=== PATIENT | male | born 1990 | race Caucasian/White ===

== ENCOUNTER 2021-12-30 01:47 | Inpatient (IN) | payer MEDICAID, OTHER ==
[2021-12-30] VITALS (7 sets, daily range): BP systolic 122–145; BP diastolic 51–100
[~2021-12-30] VITALS: Ht 185.4 cm; Wt 65.8 kg
--- NOTE | 2021-12-30 01:56 | NUR ---
To ER 4 ambulatory with report of "can't stop puking for two days." Reports took omeprazole two days ago but not helpful. Reports emesis looks like "bile." Reports last emesis @ 10 pm.
[2021-12-30] MEDS ORDERED: NS 1000ML 1,000 ML IV STA ×2 (02:10→04:48)
[2021-12-30] MEDS ORDERED: MORPHINE SULFATE IV STA ×2 (02:10→04:14)
[2021-12-30] MEDS ORDERED: ZOFRAN IV STA (02:10)
--- NOTE | 2021-12-30 02:10 | ER.PDOC ---
General Chief Complaint: Requesting Medical Care Stated Complaint: VOMITING Time seen by MD: 02:07 Source: patient Exam Limitations: no limitations History of Present Illness Initial Comments Drinks alcohol, + intermittent abd pain x 2 weeks. Severity/Quality: moderate Abdominal Pain Onset Location: Epigastric Associated Symptoms (vomiting): freq vomitng Associated Symptoms (diarrhea): mild Allergies: Uncoded Allergies: penicillin (Allergy, Unknown, 12/30/21) Vital Signs First Vital Signs Date Time Temp Pulse Resp B/P (MAP) Pulse Ox O2 Delivery O2 Flow Rate FiO2 12/30/21 01:56 98.3 119 22 125/93 (104) 97 Room Air* 0 21 Last Vital Signs Date Time Temp Pulse Resp B/P (MAP) Pulse Ox O2 Delivery O2 Flow Rate FiO2 12/30/21 01:56 98.3 119 22 12/30/21 01:56 97 12/30/21 01:56 125/93 (104) Room Air* 0 21 All Other Systems: Reviewed and Negative Physical Exam General Appearance: Moderate Distress HEENT: PERRL/EOMI, Normal ENT Inspection Neck: Non-Tender, Full Range of Motion Respiratory: chest non-tender, lungs clear Cardiovascular: Normal Peripheral Pulses, Regular Rate, Rhythm Gastrointestinal: Normal Bowel Sounds Back: Normal Inspection, No CVA Tenderness Extremities: Normal Range of Motion, Non-Tender Neurologic/Psychiatric: No Motor/Sensory Deficits, Alert Skin: Normal Color, Warm/Dry Lymphatic: No Adenopathy, Axilla Node Tender (R) Results/Orders Results/Orders Orders - WILMER NATARAJAN MD Cbc With Auto Diff (12/30/21 02:10) Comprehensive Metabolic Panel (12/30/21 02:10) Lipase (12/30/21 02:10) PT (12/30/21 02:10) Ct Abd/Pel With Iv Contrast (12/30/21 02:10) Partial Thromboplastin Time. (12/30/21 02:10) Urinalysis (12/30/21 02:10) Drug Scrn Med W Confirmation (12/30/21 02:10) Morphine Sulfate (Morphine Sulfate) (12/30/21 02:10) Ondansetron Hcl/Pf (Zofran) (12/30/21 02:10) 0.9 % Sodium Chloride (Ns 1000ml) (12/30/21 02:10) Alcohol(Ml) (12/30/21 02:10) 0.9 % Sodium Chloride (Ns 1000ml) (12/30/21 02:20) Ondansetron Hcl/Pf (Zofran) (12/30/21 02:20) Morphine Sulfate (Morphine Sulfate) (12/30/21 02:21) Lorazepam (Ativan) (12/30/21 03:17) Lorazepam (Ativan) (12/30/21 03:20) Lorazepam (Ativan) (12/30/21 03:44) Morphine Sulfate (Morphine Sulfate) (12/30/21 04:14) Morphine Sulfate (Morphine Sulfate) (12/30/21 04:26) 0.9 % Sodium Chloride (Ns 1000ml) (12/30/21 04:48) Admit Orders (12/30/21 04:49) Vital Signs Date Time Temp Pulse Resp B/P (MAP) Pulse Ox O2 Delivery O2 Flow Rate FiO2 12/30/21 01:56 98.3 119 22 12/30/21 01:56 98.3 119 22 97 12/30/21 01:56 98.3 119 22 125/93 (104) 97 Room Air* 0 21 Administered Medications Medications (Trade) Dose Ordered Sig/Poli Route PRN Reason Start Time Stop Time Status Last Admin Dose Admin Lorazepam (Ativan) 0.5 mg STAT STAT IV 12/30/21 03:17 12/30/21 03:18 DC 12/30/21 03:21 0.5 MG Lorazepam (Ativan) 0.5 mg STAT STAT IV 12/30/21 03:44 12/30/21 03:45 DC 12/30/21 03:48 0.5 MG Morphine Sulfate (Morphine Sulfate) 4 mg STAT STAT IV 12/30/21 02:10 12/30/21 02:17 DC 12/30/21 02:41 4 MG Morphine Sulfate (Morphine Sulfate) 4 mg STAT STAT IV 12/30/21 04:14 12/30/21 04:15 DC 12/30/21 04:27 4 MG Ondansetron HCl (Zofran) 4 mg OT STAT IV 12/30/21 02:10 12/30/21 02:17 DC 12/30/21 02:41 4 MG Sodium Chloride 1,000 ml @ 150 mls/hr Q6H40M STAT IV 12/30/21 04:48 12/30/21 11:27 12/30/21 05:10 150 MLS/HR Sodium Chloride 1,000 ml @ 1,200 mls/hr Q50M STAT IV 12/30/21 02:10 12/30/21 02:59 DC 12/30/21 02:42 1,200 MLS/HR Laboratory Tests Test 12/30/21 02:10 12/30/21 02:15 12/30/21 02:45 Urine Collection Type RANDOM Urine Color STRAW Urine Appearance CLEAR Urine Bilirubin NEGATIVE (NEGATIVE) Urine Ketones NEGATIVE (NEGATIVE) Urine Specific [place] <=1.005 (1.005-1.030) Urine pH 6.0 (4.5-8.0) Urine Protein NEGATIVE (NEGATIVE) Urine Urobilinogen 0.2 E.U./dL (0.2) Urine Nitrate NEGATIVE (NEGATIVE) Urine Leukocyte Esterase NEGATIVE (NEGATIVE) Urine Glucose (Auto)(UA) NEGATIVE (NEGATIVE) Urine Blood NEGATIVE (NEGATIVE) Urine Opiates Screen NEGATIVE (c/o300ng/mL) Urine Methadone Screen NEGATIVE (c/o300ng/mL) Urine Barbiturates Screen NEGATIVE (c/o200ng/mL) Urine Phencyclidine Screen NEGATIVE (c/o 25ng/mL) Ur Amphetamine/Methamphetamine NEGATIVE ([id number]/mL) Urine MDMA Screen (Ecstasy) NEGATIVE (c/o300ng/mL) Urine Benzodiazepines Screen NEGATIVE (c/o200ng/mL) Urine Cocaine Metabolite Screen NEGATIVE (c/o300ng/mL) Ur Tetrahydrocannabinol (THC) Scrn NEGATIVE (c/o 50ng/mL) White Blood Count 3.5 10^3/uL (4.5-11.0) L Red Blood Count 4.88 10^6/uL (4.50-5.90) Hemoglobin 16.1 g/dL (13.9-16.3) Hematocrit 46.6 % (37.0-53.0) Mean Corpuscular Volume 95.5 fL (78-100) Mean Corpuscular Hemoglobin 33.0 pg (26-34) Mean Corpuscular Hemoglobin Concent 34.5 g/dL (33-36.5) Red Cell Distribution Width 14.7 % (11.5-14.5) H Platelet Count 147 10^3/uL (150-400) L Mean Platelet Volume 7.7 fL (7.8-11.0) L Neutrophils (%) (Auto) 43.5 % (41.0-85.0) Lymphocytes (%) (Auto) 41.4 % (24.0-44.0) Monocytes (%) (Auto) 12.2 % (5.0-12.0) H Neutrophils # (Auto) 1.5 10^3/uL (1.8-7.7) L Lymphocytes # (Auto) 1.43 10^3/uL1 (1.0-4.8) Monocytes # (Auto) 0.4 10^3/uL (0.3-0.8) Absolute Immature Granulocyte (auto 0 10^3 u/L (0-2) Absolute Eosinophils (auto) 0.0 10^3/uL (0.0-0.2) Immature Granulocytes % 0.00 % (0.00-0.50) Eosinophils % 1.2 % (0.0-5.0) Basophils % 1.7 % (0.0-0.2) H Basophils # 0.1 10^3/uL (0.0-0.1) Prothrombin Time 9.8 SEC (9.1-11.5) Prothrombin Time INR (Non-Therap) 1.0 Activated Partial Thromboplast Time 24.3 SEC (22.5-33.1) Sodium Level 141 mmol/L (132-145) Potassium Level 4.4 mmol/L (3.6-5.2) Chloride Level 103.0 mmol/L (96-109) Carbon Dioxide Level 22.5 mmol/L (20.0-32) Anion Gap 19.9 Blood Urea Nitrogen 4 mg/dL (7-18) L Creatinine 0.71 mg/dL (0.59-1.40) Estimated GFR () 155.6 (>/=60) Est GFR (CKD-EPI)(Non-Afr Gabonese) 128.6 (>/=60) BUN/Creatinine Ratio 5.0 Glucose Level 92 mg/dL (70-110) Calcium Level 8.8 mg/dL (8.4-10.5) Total Bilirubin 0.8 mg/dL (0.2-1.0) Aspartate Amino Transferase (AST) 180 U/L (0-35) H Alanine Aminotransferase (ALT) 154 U/L (12-78) H Alkaline Phosphatase 71 U/L (50-136) Total Protein 7.2 g/dL (6.4-8.2) Albumin 3.8 g/dL (3.4-5.0) Globulin 3.4 Albumin/Globulin Ratio 1.117 Lipase 445 U/L (114-286) H Serum Alcohol 413 mg/dL (0-50) H Progress Progress called DR. Lind @ 04:18 to admit patient, no answer, [facility]. Call #2 Dr. Diogo [email or web address] @04:32 ER DEPART Departure Time of Disposition: 06:08 Disposition: 09 ADMITTED INPATIENT Impression: Primary Impression: Pancreatitis Additional Impression: Alcohol abuse Condition: Stable Referrals: PCP,UNKNOWN (PCP) PRIMARY CARE PROVIDER Duration or Time Spent with Pa: 1 hr Problem Qualifiers WILMER NATARAJAN MD December 30, 2021 02:10
[2021-12-30] MEDS ORDERED: ZOFRAN ONE (02:20)
[2021-12-30] MEDS ORDERED: NS 1000ML 1,000 ML ONE (02:20)
[2021-12-30] MEDS ORDERED: MORPHINE SULFATE ONE ×3 (02:21→07:37)
[2021-12-30 02:24] LABS: BILIRUBIN,URINE NEGATIVE (NEGATIVE); UROBILINOGEN,URINE 0.2 E.U./dL (0.2)
[2021-12-30 02:51] LABS: BASOPHIL # 0.1 10^3/uL (0.0-0.1); BASOPHIL % 1.7 % (0.0-0.2); EOSINOPHIL % 1.2 % (0.0-5.0); LYMPHOCYTES # 1.43 10^3/uL1 (1.0-4.8); LYMPHOCYTES % 41.4 % (24.0-44.0); MONOCYTES # 0.4 10^3/uL (0.3-0.8); MONOCYTES % 12.2 % (5.0-12.0); NEUTROPHIL # 1.5 10^3/uL (1.8-7.7); NEUTROPHILS % 43.5 % (41.0-85.0); PLATELET COUNT 147 10^3/uL (150-400); RED CELL DISTRIBUTION WIDTH 14.7 % (11.5-14.5)
[2021-12-30 03:10] LABS: CARBON DIOXIDE 22.5 mmol/L (20.0-32)
--- NOTE | 2021-12-30 03:15 | NUR ---
CRITICAL LAB ALCOHOL LEVEL 413. REPORTED TO DR. NATARAJAN.
[2021-12-30] MEDS ORDERED: ATIVAN IV STA ×2 (03:17→03:44)
[2021-12-30] MEDS ORDERED: ATIVAN ONE (03:20)
--- NOTE | 2021-12-30 03:55 | DIREP ---
PROCEDURE:CT ABDOMEN/PELVIS W/ CONTRAST COMPARISON:None. INDICATIONS:abd pain TECHNIQUE:Axial images were created through the abdomen and pelvis with non-ionic intravenous contrast material. No oral contrast was administered. Sagittal and coronal reconstructions were performed from source images. FINDINGS: LUNG BASES:No suspicious airspace consolidation or pleural effusion. LIVER:Significant hepatic steatosis. No suspicious focal hepatic lesion. BILIARY:The gallbladder is nondistended. No radiopaque calculi. No significant intrahepatic or extrahepatic biliary ductal dilatation. PANCREAS:No suspicious pancreatic abnormality. SPLEEN:The spleen is not significantly enlarged. No focal splenic lesion identified. ADRENALS:The adrenal glands are unremarkable. URINARY TRACT:No hydronephrosis or suspicious renal lesion. AORTA/VASCULAR:No aneurysmal dilatation. RETROPERITONEUM:No suspicious retroperitoneal lymphadenopathy. BOWEL/MESENTERY:Mild wall thickening of the distal esophagus may be secondary to reflux esophagitis. No evidence for small bowel obstruction. No gross colonic abnormality. Nonvisualization of the appendix without secondary signs to suggest acute appendicitis. No free air. ABDOMINAL WALL:No significant hernia. PELVIC ORGANS:Urinary bladder is mildly distended. The prostate is not enlarged. No free fluid. BONES:No acute abnormality. CONCLUSION: 1. No acute intra-abdominal abnormality. No gross colonic abnormality. Nonvisualization of the appendix without secondary signs to suggest acute appendicitis. Significant hepatic steatosis. Mild wall thickening of the distal esophagus may be secondary to reflux esophagitis. 2. Additional findings as discussed above. Dictated by: eDnys Pedroza M.D. On 12/30/2021 at 03:47 AM
--- NOTE | 2021-12-30 04:21 | NUR ---
Pt frequently ambulatory to and from the restroom with steady gait.
[2021-12-30] MEDS ORDERED: OMEP20CA19 PO (06:10)
[2021-12-30] MEDS ORDERED: PHENERGAN IV PRN (06:30)
[2021-12-30] MEDS ORDERED: ATIVAN IV PRN (06:30)
[2021-12-30] MEDS: MORPHINE SULFATE IV PRN ×3 (07:41→19:29)
[2021-12-30] MEDS: ZOFRAN IV PRN ×2 (07:41→19:30)
[2021-12-30] MEDS: NICOTINE 7MG PATCH TD SCH (08:13)
[2021-12-30] MEDS ORDERED: THIAMINE HCL IV STA (08:47)
[2021-12-30] MEDS: LOVENOX SQ SCH ×2 (09:00→09:36)
[2021-12-30] MEDS ORDERED: NS IV ONE (09:00)
[2021-12-30] MEDS ORDERED: INFUVITE ADULT IV ONE (09:00)
[2021-12-30] MEDS: D5LR 1000ML 1,000 ML IV SCH ×3 (09:00→22:20)
[2021-12-30] MEDS ORDERED: LIBRIUM PO PRN (09:00)
[2021-12-30] MEDS ORDERED: TORADOL IV PRN (09:00)
[2021-12-30] MEDS ORDERED: THIAMINE HCL IV ONE (09:00)
[2021-12-30] MEDS: THIAMINE HCL PO SCH (09:36)
[2021-12-30] MEDS ORDERED: LIBRIUM ONE (10:24)
[2021-12-30] MEDS: LIBRIUM PO SCH ×2 (10:26→17:30)
[2021-12-30] MEDS: NS 1000ML 1,000 ML IV SCH ×2 (11:00→17:40)
[2021-12-30] MEDS: ATIVAN IV PRN ×3 (11:30→22:05)
--- NOTE | 2021-12-30 12:23 | PCM.HP ---
HISTORY & PHYSICAL HISTORY & PHYSICAL DATE OF ADMISSION: December 30, 2021 CHIEF COMPLAINT: Nausea vomiting for 1 week HISTORY OF PRESENT ILLNESS: 31-year-old male with previous history of no known medical problems presented to the ER with a complaint of vomiting clear liquid On and off for 1 week not able to tolerate solid food denies any hematemesis denies any diarrhea melena or hematochezia no fever chills or rigors Client was able to tolerate water intermittently and abdominal pain that was constant in nature no aggravating or relieving factor except pain medication No skin rash no headache no blurry vision no shortness of breath cough or wheezing no dysuria or hematuria or increased frequency of urination ALLERGIES: Allergy to penicillin had severe rash CURRENT MEDICATIONS: [id number] omeprazole as needed for abdominal pain PAST MEDICAL HISTORY: Umbilical hernia surgery, history of hepatitis C infection SOCIAL HISTORY: Vape nicotine, chronic alcohol intake FAMILY HISTORY: Reviewed and noncontributory REVIEW OF SYSTEMS: Increase appetite no nausea no headache no blurry vision no shortness of breath or cough no wheezing have abdominal pain mild in nature in the epigastrium no radiation denies any diarrhea melena or hematochezia no urinary symptoms no musculoskeletal symptoms, has skin rash for several years All systems reviewed and negative except mentioned above VITAL SIGNS: Vital Signs Date Time Temp Pulse Resp B/P (MAP) Pulse Ox O2 Delivery O2 Flow Rate FiO2 12/30/21 11:12 91 16 94 Nasal Cannula* 2 12/30/21 11:00 89 19 98 Nasal Cannula* 2 12/30/21 10:30 95 19 100 Nasal Cannula* 2 12/30/21 10:00 100 38 96 Nasal Cannula* 2 12/30/21 09:30 89 13 99 Nasal Cannula* 2 12/30/21 09:14 Nasal Cannula 12/30/21 09:00 92 41 100 Nasal Cannula* 2 12/30/21 09:00 92 20 100 Nasal Cannula* 2 12/30/21 08:30 95 21 100 Room Air* 0 12/30/21 08:14 Nasal Cannula 2.00 12/30/21 08:00 91 20 100 Room Air* 0 12/30/21 08:00 91 20 100 Room Air* 0 12/30/21 07:30 101 21 136/98 (111) 98 Room Air* 0 12/30/21 07:30 101 21 136/98 (111) 98 Room Air* 0 21 12/30/21 07:22 98 36 130/100 (110) Room Air* 0 21 12/30/21 07:22 98.0 98 36 130/100 (110) 95 Room Air* 0 21 12/30/21 01:56 98.3 119 22 12/30/21 01:56 98.3 119 22 97 12/30/21 01:56 98.3 119 22 125/93 (104) 97 Room Air* 0 21 PHYSICAL EXAMINATION: HEENT anicteric sclera pupil react light mucous membrane is moist neck supple no JVD no carotid bruit Lungs: Air entry symmetrical no Rales or rhonchi heard Heart: S1-S2 heard no murmur gallop appreciated Abdomen: Flaky rash on the abdomen noted, Soft and nontender no organomegaly or masses felt no guarding or rigidity present bowel sounds active Extremities skin rash noted again moves all 4 limbs, no edema or bruises noted 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 have trembling and no focal deficit noted Psych anxious and normal insight of his condition LABORATORY DATA: Laboratory Tests 12/30/21 02:10: Urine Collection Type RANDOM, Urine Color STRAW, Urine Appearance CLEAR, Urine Bilirubin NEGATIVE, Urine Ketones NEGATIVE, Urine Specific [place] <=1.005, Urine pH 6.0, Urine Protein NEGATIVE, Urine Urobilinogen 0.2, Urine Nitrate NEGATIVE, Urine Leukocyte Esterase NEGATIVE, Urine Glucose (Auto)(UA) NEGATIVE, Urine Blood NEGATIVE 12/30/21 02:15: Urine Opiates Screen NEGATIVE, Urine Methadone Screen NEGATIVE, Urine Barbiturates Screen NEGATIVE, Urine Phencyclidine Screen NEGATIVE, Ur Amphetamine/Methamphetamine Scrn NEGATIVE, Urine MDMA Screen (Ecstasy) NEGATIVE, Urine Benzodiazepines Screen NEGATIVE, Urine Cocaine Metabolite Screen NEGATIVE, Ur Tetrahydrocannabinol (THC) Scrn NEGATIVE 12/30/21 02:45: White Blood Count 3.5L, Red Blood Count 4.88, Hemoglobin 16.1, Hematocrit 46.6, Mean Corpuscular Volume 95.5, Mean Corpuscular Hemoglobin 33.0, Mean Corpuscular Hemoglobin Concent 34.5, Red Cell Distribution Width 14.7H, Platelet Count 147L, Mean Platelet Volume 7.7L, Neutrophils (%) (Auto) 43.5, Lymphocytes (%) (Auto) 41.4, Monocytes (%) (Auto) 12.2H, Neutrophils # (Auto) 1.5L, Lymphocytes # (Auto) 1.43, Monocytes # (Auto) 0.4, Absolute Immature Granulocyte (auto 0, Absolute Eosinophils (auto) 0.0, Immature Granulocytes % 0.00, Eosinophils % 1.2, Basophils % 1.7H, Basophils # 0.1, Prothrombin Time 9.8, Prothrombin Time INR (Non-Therap) 1.0, Activated Partial Thromboplast Time 24.3, Sodium Level 141, Potassium Level 4.4, Chloride Level 103.0, Carbon Dioxide Level 22.5, Anion Gap 19.9, Blood Urea Nitrogen 4L, Creatinine 0.71, Estimated GFR ( [place]) 155.6, Est GFR (CKD-EPI)(Non-Afr Cam[place]onian) 128.6, BUN/Creatinine Ratio 5.0, Glucose Level 92, Calcium Level 8.8, Total Bilirubin 0.8, Aspartate Amino Transf (AST/SGOT) 180H, Alanine Aminotransferase (ALT/SGPT) 154H, Alkaline Phosphatase 71, Total Protein 7.2, Albumin 3.8, Globulin 3.4, Albumin/Globulin Ratio 1.117, Lipase 445H, Serum Alcohol 413H IMAGING: SUMMARY: 31-year-old male presented with nausea and vomiting with alcoholic intoxication and now showing early withdrawal sign alcoholic intoxication ASSESSMENT/PLAN: Alcohol abuse Alcoholic withdrawal with anxiety History of hepatitis C infection Fatty liver on imaging Psoriasis Plan: IV fluid, thiamine,,Clear liquid diet, Librium and Ativan for withdrawal symptoms and DT, hepatitis panel, advised on abstinence from alcohol and tobacco use BRIAN SANTANA MD December 30, 2021 12:23
[2021-12-30] MEDS: LACTATED RINGERS 1,000 ML IV SCH ×2 (20:58→21:00)
[2021-12-31] MEDS: NS 1000ML 1,000 ML IV SCH ×2 (00:20→07:00)
[2021-12-31] MEDS: LIBRIUM PO SCH ×5 (00:23→23:08)
[2021-12-31 00:52] VITALS: BP 157/95
[2021-12-31] MEDS: LACTATED RINGERS 1,000 ML IV SCH ×8 (01:00→21:04)
[2021-12-31] MEDS: ZOFRAN IV PRN (02:18)
[2021-12-31] MEDS: MORPHINE SULFATE IV PRN ×4 (02:19→21:04)
[2021-12-31] MEDS: ATIVAN IV PRN ×5 (04:42→23:07)
[2021-12-31 04:54] LABS: BASOPHIL # 0.1 10^3/uL (0.0-0.1); BASOPHIL % 2.3 % (0.0-0.2); EOSINOPHIL % 1.5 % (0.0-5.0); LYMPHOCYTES # 0.69 10^3/uL1 (1.0-4.8); LYMPHOCYTES % 26.6 % (24.0-44.0); MEAN CORP HGB 33.8 pg (26-34); MONOCYTES # 0.2 10^3/uL (0.3-0.8); MONOCYTES % 7.7 % (5.0-12.0); NEUTROPHIL # 1.6 10^3/uL (1.8-7.7); NEUTROPHILS % 61.9 % (41.0-85.0); PLATELET COUNT 80 10^3/uL (150-400); RED CELL DISTRIBUTION WIDTH 14.1 % (11.5-14.5)
[2021-12-31] MEDS: D5LR 1000ML 1,000 ML IV SCH (05:00)
[2021-12-31 05:18] LABS: CARBON DIOXIDE 23.9 mmol/L (20.0-32)
[2021-12-31 05:44] VITALS: BP 145/92
[2021-12-31 07:00] VITALS: BP 150/98
[2021-12-31] MEDS: LOVENOX SQ SCH (08:30)
[2021-12-31] MEDS ORDERED: PROTONIX IV IV SCH (09:00)
[2021-12-31] MEDS: NICOTINE 7MG PATCH TD SCH (09:26)
[2021-12-31] MEDS: THIAMINE HCL PO SCH (09:26)
--- NOTE | 2021-12-31 10:32 | NUR ---
STATUS DR VERDE IN ROOM TO SEE PT, ORDER RECEIVED TO CHANGE ATIVAN IV 1MG Q4 PRN TO ATIVAN IV 1MG Q4 SCHEDULED AND ATIVAN 1MG Q2 HR PRN FOR WITHDRAWALS. PT EDUCATED ON CHANGE OF MEDICATIONS, VERBALIZED UNDERSTANDING. WILL CONT WITH PLAN OF CARE.
--- NOTE | 2021-12-31 10:35 | NUR ---
DISCHARGE PLAN CM AT BEDSIDE TO VISIT WITH PATIENT REGARDING D/C PLAN. PATIENT LIVES AT HOME AT [facility] WITH HIS SIBLINGS. HE IS VERY IND OF ADLS AND DOES NOT USE OR REQUIRE DME FOR ADLS. PATIENT WAS DRIVING THROUGH [place] [facility] STOPPED AT THE ER DUE TO HIS ABDOMINAL PAIN. CM ASKED PATIENT HE WOULD LIKE INFORMATION ON ALCOHOL ABUSE RESOURCES. PATIENT GOT SHORT WITH CM AND SAID "THAT'S WHY I AM HERE, I JUST TALKED TO SOMEONE ABOUT THAT." HE ALSO TOLD CM THAT HE DID NOT WANT TO TALK ABOUT IT AGAIN AND HE HAS NOT HAD ANY SLEEP AND HE KEEPS GETTING WOKE UP AND BOTHERED. CM LEFT A CONTACT NUMBER FOR [facility] [phone] LOCATED IN [facility] WITH RN TO PROVIDE TO PATIENT. DISCHARGE PLAN IS FOR PATIENT TO D/C BACK HOME TO ROUTINE CARE AND FOLLOW UP WITH SEEKING REHAB ON AN OUTPATIENT BASIS. NO FURTHER NEEDS NOTED AT THIS TIME.
[2021-12-31] MEDS ORDERED: CATAPRES PO PRN (11:00)
--- NOTE | 2021-12-31 11:03 | PRM.PN ---
Subjective Subjective Date: December 31, 2021 Time: 09:00 Subjective Patient still anxious, restless, still complaining of abdominal pain. Review of Systems Constitutional: No: Fever, Chills Gastrointestinal: Nausea, Abdominal Pain Neurological: Other (Anxious, restless) Other Review of other 14 systems negative except was mentioned in history of present illness/ Allergies: Uncoded Allergies: penicillin (Allergy, Unknown, 12/30/21) Scheduled Omeprazole (Omeprazole), 20 MG PO DAILY24, (Reported) Objective Vitals and I/O Vital Sign - Last 24 Hours 12/30/21 12/30/21 12/30/21 12/30/21 11:00 11:00 11:00 11:00 Pulse 89 89 89 89 Resp 19 19 19 19 Pulse Ox 98 98 98 98 O2 Delivery Nasal Cannula* Nasal Cannula* Nasal Cannula* Nasal Cannula* O2 Flow Rate 2 2 2 2 FiO2 28 12/30/21 12/30/21 12/30/21 12/30/21 11:12 11:15 11:30 11:37 Pulse 91 103 89 102 Resp 16 20 15 28 B/P (MAP) 122/51 (74) Pulse Ox 94 96 87 96 O2 Delivery Nasal Cannula* Nasal Cannula* Nasal Cannula* Nasal Cannula* O2 Flow Rate 2 2 2 2 FiO2 28 12/30/21 12/30/21 12/30/21 12/30/21 11:37 11:45 12:00 12:00 Pulse 102 96 89 89 Resp 28 16 16 B/P (MAP) 122/51 (74) 128/78 (95) 128/78 (95) Pulse Ox 96 88 97 97 O2 Delivery Nasal Cannula* Nasal Cannula* Nasal Cannula* Nasal Cannula* O2 Flow Rate 2 2 2 2 FiO2 28 12/30/21 12/30/21 12/30/21 12/30/21 12:15 12:22 12:30 12:45 Pulse 101 102 93 Resp 16 14 14 Pulse Ox 99 98 96 O2 Delivery Nasal Cannula* Nasal Cannula* Nasal Cannula* Nasal Cannula* O2 Flow Rate 2 2 2 2 FiO2 28 12/30/21 12/30/21 12/30/21 12/30/21 12:45 13:45 14:00 14:00 Pulse 93 93 97 97 Resp 14 15 15 15 Pulse Ox 96 93 92 92 O2 Delivery Nasal Cannula* Nasal Cannula* Nasal Cannula* Nasal Cannula* O2 Flow Rate 2 2 2 2 FiO2 28 28 28 28 12/30/21 12/30/21 12/30/21 12/30/21 14:58 15:00 16:00 17:35 Pulse 99 86 87 Resp 20 17 32 B/P (MAP) 139/91 (107) Pulse Ox 99 99 95 O2 Delivery Room Air* Room Air* Room Air* Room Air* O2 Flow Rate 0 0 0 0 FiO2 21 12/30/21 12/30/21 12/30/21 12/31/21 17:59 19:00 19:50 00:52 Temp 98.3 98.5 Pulse 90 113 95 Resp 14 62 22 B/P (MAP) 145/90 (108) 157/95 (115) Pulse Ox 98 96 97 O2 Delivery Room Air* Room Air* Nasal Cannula Room Air* O2 Flow Rate 0 0 0 FiO2 21 12/31/21 12/31/21 12/31/21 12/31/21 05:44 07:00 08:32 08:37 Temp 98.5 98.2 Pulse 91 85 91 Resp 19 18 19 B/P (MAP) 145/92 (109) 150/98 (115) Pulse Ox 96 96 97 O2 Delivery Room Air* Room Air* Room Air Room Air* O2 Flow Rate 0 0 0 FiO2 Intake and Output 12/31/21 07:00 Intake Total 4370 ml Output Total 4600 ml Balance -230 ml General: Alert, Oriented X3, moderate distress, Other (Anxious and restless) HEENT: Atraumatic, Mucous membr. moist/pink Neck: Supple, No JVD Lungs: Clear to auscultation, Normal air movement Heart: Regular rate, Normal S1, Normal S2 Abdomen: Soft, Other (Tender) Extremities: No clubbing, No cyanosis Skin: No significant lesion Neuro: Normal speech, Normal tone, Other (Anxious, restless) Psych/Mental Status: Mental status NL, Other (Anxious, restless) All Results(Lab/Rad) Laboratory Tests Test 12/31/21 04:30 White Blood Count 2.6 10^3/uL Red Blood Count 4.02 10^6/uL Hemoglobin 13.6 g/dL Hematocrit 38.1 % Mean Corpuscular Volume 94.8 fL Mean Corpuscular Hemoglobin 33.8 pg Mean Corpuscular Hemoglobin Concent 35.7 g/dL Red Cell Distribution Width 14.1 % Platelet Count 80 10^3/uL Mean Platelet Volume 9.0 fL Neutrophils (%) (Auto) 61.9 % Lymphocytes (%) (Auto) 26.6 % Monocytes (%) (Auto) 7.7 % Neutrophils # (Auto) 1.6 10^3/uL Lymphocytes # (Auto) 0.69 10^3/uL1 Monocytes # (Auto) 0.2 10^3/uL Absolute Immature Granulocyte (auto 0 10^3 u/L Absolute Eosinophils (auto) 0.0 10^3/uL Immature Granulocytes % 0.00 % Eosinophils % 1.5 % Basophils % 2.3 % Basophils # 0.1 10^3/uL Sodium Level 135 mmol/L Potassium Level 3.8 mmol/L Chloride Level 97.0 mmol/L Carbon Dioxide Level 23.9 mmol/L Anion Gap 17.9 Blood Urea Nitrogen 6 mg/dL Creatinine 0.78 mg/dL Estimated GFR () 139.6 Est GFR (CKD-EPI)(Non-Afr [place]) 115.4 BUN/Creatinine Ratio 7.0 Glucose Level 62 mg/dL Calcium Level 8.7 mg/dL Phosphorus Level 3.8 mg/dL Magnesium Level 1.5 mg/dL Total Bilirubin 1.5 mg/dL Aspartate Amino Transf (AST/SGOT) 97 U/L Alanine Aminotransferase (ALT/SGPT) 103 U/L Alkaline Phosphatase 70 U/L Total Protein 6.6 g/dL Albumin 3.4 g/dL Globulin 3.2 Albumin/Globulin Ratio 1.062 Lipase 156 U/L Current Medications Medications (Trade) Dose Ordered Sig/Poli Route PRN Reason Start Time Stop Time Status Last Admin Dose Admin Morphine Sulfate (Morphine Sulfate) 4 mg STAT STAT IV 12/30/21 02:10 12/30/21 02:17 DC 12/30/21 02:41 Ondansetron HCl (Zofran) 4 mg OT STAT IV 12/30/21 02:10 12/30/21 02:17 DC 12/30/21 02:41 Sodium Chloride 1,000 ml @ 1,200 mls/hr Q50M STAT IV 12/30/21 02:10 12/30/21 02:59 DC 12/30/21 02:42 Sodium Chloride 1,000 ml @ ud STK-MED ONCE .ROUTE 12/30/21 02:20 12/30/21 02:20 DC Ondansetron HCl (Zofran) 4 mg STK-MED ONCE .ROUTE 12/30/21 02:20 12/30/21 02:20 DC Morphine Sulfate (Morphine Sulfate) 2 mg STK-MED ONCE .ROUTE 12/30/21 02:21 12/30/21 02:21 DC Lorazepam (Ativan) 0.5 mg STAT STAT IV 12/30/21 03:17 12/30/21 03:18 DC 12/30/21 03:21 Lorazepam (Ativan) 2 mg STK-MED ONCE .ROUTE 12/30/21 03:20 12/30/21 03:20 DC Lorazepam (Ativan) 0.5 mg STAT STAT IV 12/30/21 03:44 12/30/21 03:45 DC 12/30/21 03:48 Morphine Sulfate (Morphine Sulfate) 4 mg STAT STAT IV 12/30/21 04:14 12/30/21 04:15 DC 12/30/21 04:27 Morphine Sulfate (Morphine Sulfate) 2 mg STK-MED ONCE .ROUTE 12/30/21 04:26 12/30/21 04:26 DC Sodium Chloride 1,000 ml @ 150 mls/hr Q6H40M STAT IV 12/30/21 04:48 12/30/21 08:52 DC 12/30/21 05:10 Sodium Chloride 1,000 ml @ 150 mls/hr Q6H40M IV 12/30/21 11:00 12/31/21 07:11 DC Ondansetron HCl (Zofran) 4 mg Q6HR PRN IV NAUSEA / VOMITING 12/30/21 06:30 01/29/22 06:29 12/31/21 02:18 Promethazine HCl (Phenergan) 12.5 mg Q6H PRN IV NAUSEA / VOMITING 12/30/21 06:30 01/29/22 06:29 Morphine Sulfate (Morphine Sulfate) 4 mg Q4 PRN IV PAIN 7 - 10 12/30/21 06:30 01/29/22 06:29 12/31/21 07:18 Ketorolac Tromethamine (Toradol) 15 mg Q6H PRN IV PAIN 4 - 6 12/30/21 09:00 12/30/21 08:52 DC Enoxaparin Sodium (Lovenox) 40 mg Q24HRS SQ 12/30/21 09:00 01/29/22 08:59 Lorazepam (Ativan) 2 mg Q2 PRN IV WITHDRAWAL SYMPTOMS 12/30/21 06:30 12/30/21 08:57 DC Morphine Sulfate (Morphine Sulfate) 4 mg STK-MED ONCE .ROUTE 12/30/21 07:37 12/30/21 07:38 DC Nicotine (Nicotine 7mg Patch) 1 each DAILY TD 12/30/21 09:00 01/03/22 09:00 12/31/21 09:26 Thiamine HCl (Thiamine HCl) 100 mg STAT STAT IV 12/30/21 08:47 12/30/21 08:53 DC Thiamine HCl (Thiamine HCl) 100 mg DAILY PO 12/30/21 09:00 01/29/22 08:59 12/31/21 09:26 Dextrose/Lactated Ringer's 1,000 ml @ 150 mls/hr Q6H40M IV 12/30/21 09:00 12/31/21 07:11 DC Thiamine HCl 1000 mg/Multivit Infusn,Adult 4,Vit K 10 ml/ Sodium Chloride 1,020 ml @ 100 mls/hr OT ONCE IV 12/30/21 09:00 12/30/21 19:12 DC 12/30/21 10:27 Chlordiazepoxide (Librium) 25 mg Q6HR PRN PO ALCOHOL WITHDRAWAL 12/30/21 09:00 12/30/21 10:22 DC Lorazepam (Ativan) 1 mg Q4HR PRN IV ALCOHOL WITHDRAWAL 12/30/21 09:00 01/29/22 08:59 12/31/21 09:26 Pantoprazole Sodium (Protonix Iv) 40 mg DAILY IV 12/31/21 09:00 01/30/22 08:59 12/31/21 09:26 Chlordiazepoxide (Librium) 25 mg Q6HR PO 12/30/21 12:00 01/29/22 08:59 12/31/21 06:12 Chlordiazepoxide (Librium) 25 mg STK-MED ONCE .ROUTE 12/30/21 10:24 12/30/21 10:25 DC Clonidine (Catapres) 0.1 mg Q8H PRN PO hypertension 12/31/21 11:00 01/30/22 10:59 UNV LAB RESULTS Laboratory Tests Test 12/30/21 02:10 12/30/21 02:15 12/30/21 02:45 12/31/21 04:30 Urine Collection Type RANDOM Urine Color STRAW Urine Appearance CLEAR Urine Bilirubin NEGATIVE (NEGATIVE) Urine Ketones NEGATIVE (NEGATIVE) Urine Specific [place] <=1.005 (1.005-1.030) Urine pH 6.0 (4.5-8.0) Urine Protein NEGATIVE (NEGATIVE) Urine Urobilinogen 0.2 E.U./dL (0.2) Urine Nitrate NEGATIVE (NEGATIVE) Urine Leukocyte Esterase NEGATIVE (NEGATIVE) Urine Glucose (Auto)(UA) NEGATIVE (NEGATIVE) Urine Blood NEGATIVE (NEGATIVE) Urine Opiates Screen NEGATIVE (c/o300ng/mL) Urine Methadone Screen NEGATIVE (c/o300ng/mL) Urine Barbiturates Screen NEGATIVE (c/o200ng/mL) Urine Phencyclidine Screen NEGATIVE (c/o 25ng/mL) Ur Amphetamine/Methamphetamine NEGATIVE ([id number]/mL) Urine MDMA Screen (Ecstasy) NEGATIVE (c/o300ng/mL) Urine Benzodiazepines Screen NEGATIVE (c/o200ng/mL) Urine Cocaine Metabolite Screen NEGATIVE (c/o300ng/mL) Ur Tetrahydrocannabinol (THC) Scrn NEGATIVE (c/o 50ng/mL) White Blood Count 3.5 10^3/uL (4.5-11.0) 2.6 10^3/uL (4.5-11.0) Red Blood Count 4.88 10^6/uL (4.50-5.90) 4.02 10^6/uL (4.50-5.90) Hemoglobin 16.1 g/dL (13.9-16.3) 13.6 g/dL (13.9-16.3) Hematocrit 46.6 % (37.0-53.0) 38.1 % (37.0-53.0) Mean Corpuscular Volume 95.5 fL (78-100) 94.8 fL (78-100) Mean Corpuscular Hemoglobin 33.0 pg (26-34) 33.8 pg (26-34) Mean Corpuscular Hemoglobin Concent 34.5 g/dL (33-36.5) 35.7 g/dL (33-36.5) Red Cell Distribution Width 14.7 % (11.5-14.5) 14.1 % (11.5-14.5) Platelet Count 147 10^3/uL (150-400) 80 10^3/uL (150-400) Mean Platelet Volume 7.7 fL (7.8-11.0) 9.0 fL (7.8-11.0) Neutrophils (%) (Auto) 43.5 % (41.0-85.0) 61.9 % (41.0-85.0) Lymphocytes (%) (Auto) 41.4 % (24.0-44.0) 26.6 % (24.0-44.0) Monocytes (%) (Auto) 12.2 % (5.0-12.0) 7.7 % (5.0-12.0) Neutrophils # (Auto) 1.5 10^3/uL (1.8-7.7) 1.6 10^3/uL (1.8-7.7) Lymphocytes # (Auto) 1.43 10^3/uL1 (1.0-4.8) 0.69 10^3/uL1 (1.0-4.8) Monocytes # (Auto) 0.4 10^3/uL (0.3-0.8) 0.2 10^3/uL (0.3-0.8) Absolute Immature Granulocyte (auto 0 10^3 u/L (0-2) 0 10^3 u/L (0-2) Absolute Eosinophils (auto) 0.0 10^3/uL (0.0-0.2) 0.0 10^3/uL (0.0-0.2) Immature Granulocytes % 0.00 % (0.00-0.50) 0.00 % (0.00-0.50) Eosinophils % 1.2 % (0.0-5.0) 1.5 % (0.0-5.0) Basophils % 1.7 % (0.0-0.2) 2.3 % (0.0-0.2) Basophils # 0.1 10^3/uL (0.0-0.1) 0.1 10^3/uL (0.0-0.1) Prothrombin Time 9.8 SEC (9.1-11.5) Prothrombin Time INR (Non-Therap) 1.0 Activated Partial Thromboplast Time 24.3 SEC (22.5-33.1) Sodium Level 141 mmol/L (132-145) 135 mmol/L (132-145) Potassium Level 4.4 mmol/L (3.6-5.2) 3.8 mmol/L (3.6-5.2) Chloride Level 103.0 mmol/L (96-109) 97.0 mmol/L (96-109) Carbon Dioxide Level 22.5 mmol/L (20.0-32) 23.9 mmol/L (20.0-32) Anion Gap 19.9 17.9 Blood Urea Nitrogen 4 mg/dL (7-18) 6 mg/dL (7-18) Creatinine 0.71 mg/dL (0.59-1.40) 0.78 mg/dL (0.59-1.40) Estimated GFR () 155.6 (>/=60) 139.6 (>/=60) Est GFR (CKD-EPI)(Non-Afr [place]) 128.6 (>/=60) 115.4 (>/=60) BUN/Creatinine Ratio 5.0 7.0 Glucose Level 92 mg/dL (70-110) 62 mg/dL (70-110) Calcium Level 8.8 mg/dL (8.4-10.5) 8.7 mg/dL (8.4-10.5) Total Bilirubin 0.8 mg/dL (0.2-1.0) 1.5 mg/dL (0.2-1.0) Aspartate Amino Transf (AST/SGOT) 180 U/L (0-35) 97 U/L (0-35) Alanine Aminotransferase (ALT/SGPT) 154 U/L (12-78) 103 U/L (12-78) Alkaline Phosphatase 71 U/L (50-136) 70 U/L (50-136) Total Protein 7.2 g/dL (6.4-8.2) 6.6 g/dL (6.4-8.2) Albumin 3.8 g/dL (3.4-5.0) 3.4 g/dL (3.4-5.0) Globulin 3.4 3.2 Albumin/Globulin Ratio 1.117 1.062 Lipase 445 U/L (114-286) 156 U/L (114-286) Serum Alcohol 413 mg/dL (0-50) Phosphorus Level 3.8 mg/dL (2.5-4.9) Magnesium Level 1.5 mg/dL (1.8-2.4) Assessment/Plan Assessment/Plan Assessment/Plan 31-year-old male presented with nausea and vomiting with alcoholic i ntoxication and now showing early withdrawal sign alcoholic intoxication ASSESSMENT/PLAN: Alcohol abuse Alcoholic withdrawal with anxiety Elevated lipase/pancreatitis? History of hepatitis C infection Fatty liver on imaging Psoriasis Plan: IV fluid, thiamine,Multivitamin, folate,,Clear liquid diet, Librium and Ativan for withdrawal symptoms and DT, hepatitis panel, advised on abstinence from alcohol and tobacco use 12/31/2021 Patient continues to have pain and still showing signs of withdrawal, will incr ease frequency of Ativan, continue Librium, pain management. AMMON MICHAELS MD December 31, 2021 11:03
--- NOTE | 2021-12-31 11:11 | NUR ---
VAPING PT VAPING IN ROOM, EDUCATED ON THIS IS A NON SMOKING FACILITY. VERBALIZED UNDERSTANDING. PT VAPES GIVEN TO SECURITY, PT EDUCATED THAT THEY WOULD BE PUT IN A LOCKED SECURITY BOX, VERBALIZED UNDERSTANDING. SONIA MORALES RN NOTIFIED.
[2021-12-31] MEDS ORDERED: NICOTINE 21MG PATCH TD ONE (12:29)
[2021-12-31] MEDS ORDERED: NICOTINE 21MG PATCH TD SCH (12:30)
--- NOTE | 2021-12-31 12:33 | NUR ---
NICOTINE PATCH PT NICOTINE PATCH 7MG REMOVED AND REPLACED WITH NICOTINE PATCH 21MG, PT EDUCATED ON INCREASE OF DOSAGE. VERBALIZED UNDERSTANDING.
[2021-12-31 12:40] VITALS: BP 126/92
[2021-12-31] MEDS ORDERED: ATIVAN IV SCH (13:30)
[2021-12-31] MEDS ORDERED: MORPHINE SULFATE ONE (14:32)
[2021-12-31 17:13] VITALS: BP 144/86
[2021-12-31 19:34] VITALS: BP 134/95
[2022-01-01 00:04] VITALS: BP 131/93
[2022-01-01] MEDS: LACTATED RINGERS 1,000 ML IV SCH (01:00)
[2022-01-01] MEDS: MORPHINE SULFATE IV PRN (01:09)
--- NOTE | 2022-01-01 04:15 | NUR ---
AMA PT STATES HE WANTS TO LEAVE AMA. RISKS OF LEAVING AMA HAVE BEEN EXPLAINED TO PT BY THIS NURSE AT THIS TIME. EDUCATION WAS GIVEN TO PT REGARDING IMPORTANCE OF LABS, ROUNDING AND VITAL SIGNS ASSESSMENT. PT VERBALIZED UNDERSTAND AND STATES HE WOULD STILL LIKE TO LEAVE AMA. STATES "I FEEL BETTER AND THIS PLACE WON'T LET ME SLEEP" THIS NURSE, AGAIN, EDUCATED THE IMPORTANCE OF PLAN OF CARE. PT MADE THE FINAL DECISION TO LEAVE AMA. PT ESCORTED OFF [facility] FLOOR BY BAILEY YATES, SECURITY @ [id number]. RELINQUISHED CARE.
--- NOTE | 2022-01-01 04:24 | NUR ---
DR SFOIA NOTIFIED PT LEFT AMA AT THIS TIME.
[2022-01-01 04:26] VITALS: BP 131/93
[2022-01-01 11:19] LABS: HEP A AB, IgM Negative (Negative)
== END 2022-01-01 04:19 | disposition left against medical advice (07) | DRG 894 ==
LOC: ER 01:47 → INTOOBSV 04:56 → OBSVTOIN 04:56 → UNDOADMIN 04:56 → UNDOADMOB 04:56 → ICU 04:56 → MS 12-31 14:35 → ICU 12-31 14:35 → MS 12-31 14:35 → UNDODISOB 01-01 04:19 → UNDODISIN 01-01 04:19
PROVIDERS: ADMIT Family Medicine; ATTEND Internal Medicine
DX: F10.239 Alcohol dependence with withdrawal, unspecified (principal); K85.90 Acute pancreatitis without necrosis or infection, unspecified; K76.0 Fatty (change of) liver, not elsewhere classified; B19.20 Unspecified viral hepatitis C without hepatic coma; L40.9 Psoriasis, unspecified; F10.229 Alcohol dependence with intoxication, unspecified; F41.9 Anxiety disorder, unspecified; Z79.899 Other long term (current) drug therapy
CPT/HCPCS: 36415; 74177; 80053; 80307; 81003; 82077; 82948; 83690; 83735; 84100; 85025; 85610; 85730; 99285; C9113; G0378; J1650; J2060; J2270; J2405; J7030; J7120; Q9965; J3411